=== PATIENT | male | born 1995 | race Caucasian/White ===

== ENCOUNTER 2017-02-09 13:48 | Emergency (ER) | payer OTHER ==
[2017-02-09 13:56] VITALS: BP 165/116; BMI 37.2
[2017-02-09] MEDS ORDERED: MORPHINE SULFATE INJ 4 MG ONE (14:00)
[2017-02-09] MEDS ORDERED: MORPHINE SULFATE INJ 4 MG IVP ONE (14:00)
[2017-02-09] MEDS ORDERED: XYLOCAINE 2 % (PLAIN) ONE (14:02)
--- NOTE | 2017-02-09 14:04 | DR.FB ---
HPI - Time Seen Time seen: 13:50 - PCP Primary Care Physician: NFD - Complaint Chief Complaint:: PT. WAS AT WORK AND SOME HOW STEPPED ON A RAZOR BLADE AND IT IS NOW STUCK IN THE BOTTOM OF HIS RIGHT FOOT. PT. MOTHER STATES THAT HE HAS LOST A BLOOD AT JOB SITE. Chief Complaint Doctors Comments: History, agrees with statement - Source History Provided: Patient - Mode of Arrival Mode of Arrival: Wheelchair - Timing Onset of Chief Complaint: 02/09/17 PMH - PMH Past Medical History: No Past Surgical History: Yes Surgical History: Other Past Surgical History Comment: TESTICLE SURGERY - Family History History of Family Medical Conditions: Yes Family Medical History: Hypertension - Social History Does patient currently use any type of tobacco product: Yes Have you used tobacco products in the last 12 months: Yes Type of Tobacco Use: Cigarettes Does any household member use tobacco: No Do you use any recreational Drugs:: No Lives With: Family Lives Where: Home - infectious screening In the last 2 months have you had wt loss of >10#?: NO Have you had fever, night sweats or hemotysis?: No Have you traveled outside the country in the last 6 months?: No Isolation: Standard ROS - Review of Systems Constitutional: No Symptoms Reported Eyes: No Symptoms Reported ENTM: No Symptoms Reported Respiratoy: No Symptoms Reported Cardiovascular: No Symptoms Reported Gastrointestinal/Abdominal: No Symptoms Reported Genitourinary: No Symptoms Reported Neurological: No Symptoms Reported Musculoskeletal: Foot (2cm laceration to right foot) Integumentary: Other (2cm laceration plantar surfact of right foot) Hematologic/Lymphatic: No Symptoms Reported Endocrine: No Symptoms Reported Psychiatric: No Symptoms Reported All Other Systems: Reviewed and Negative PE - Vital Signs Vitals: Temperature 98.2 F Pulse Rate 98 Respiratory Rate 20 Blood Pressure 165/116 O2 Sat by Pulse Oximetry 96 - General Limitations: No Limitations General Appearance: Alert, In No Apparent Distress - Eyes Eye exam: Normal Appearance, PERRL, EOMI - ENT ENT Exam: Normal Exam External Ear Exam: Normal External Inspection TM/Canal Exam: Bilateral Normal Nose Exam: Normal Nose Exam Nasal Speculum Exam: Bilateral Normal Mouth Exam: Normal Inspection Throat Exam: Normal Inspection - Neck Neck Exam: Normal Inspection - Chest Chest Inspection: Normal Inspection - Respiratory Respiratory Exam: Normal Lung Sounds Bilat Respiratory Exam: Bilateral Clear to Auscultation - Cardiovascular Cardiovascular Exam: Regular Rate, Normal Rhythm - Abdominal Exam Abdominal Exam: Normal Inspection Abdominal Tenderness: negative: RUQ, RLQ, LUQ, LLQ, Epigastrium, Suprapubic, Diffuse, Mild, Moderate, Severe, Other - Rectal Rectal Exam: Deferred - Genitalia Genitalia: Deferred - Neurologic Neurological Exam: Alert, Oriented X3, CN II-XII Intact - Psychiatric Psychiatric Exam: Normal Affect, Normal Mood - Skin Skin Exam: Warm, Dry, Other (2cm plantar surface of right foot) Procedures - Laceration/Wound Repair Right Foot Wound Length (cm): 2 Wound's Depth, Shape: Superficial, Linear Wound Explored: 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
[2017-02-09] MEDS ORDERED: XYLOCAINE 2% and EPINEPHRINE 1:100,000 ONE (14:12)
[2017-02-09] MEDS ORDERED: HYDROGEN PEROXIDE 3% ONE (14:49)
[2017-02-09] MEDS ORDERED: BACITRACIN ZINC ONE (14:56)
== END 2017-02-09 15:16 | disposition home or self-care (01) ==
LOC: ER 13:56
PROC: 0YQM0ZZ Repair Right Foot, Open Approach (ICD-10-PCS; principal; 2017-02-09)
DX: S91.311A Laceration without foreign body, right foot, initial encounter (principal); W45.8XXA Other foreign body or object entering through skin, initial encounter; Y92.69 Other specified industrial and construction area as the place of occurrence of the external cause
CPT/HCPCS: 12001; 96365; 96374; 99283; A4222; J2001; J2270